=== PATIENT | male | born 1945 | race Caucasian/White ===

== ENCOUNTER 2022-07-26 08:26 | Day surgery (SDC) | payer OTHER ==
[2022-07-26] MEDS ORDERED: Ringers Lactate 1,000 ML IV ONE (09:05)
[2022-07-26] MEDS: CEFAZOLIN SODIUM 2 GM/VIAL ONE ×2 (09:55→10:45)
[2022-07-26] MEDS: BUPIVACAINE 0.25% PF 30 ML VIAL ONE ×2 (09:56→11:05)
[2022-07-26] MEDS ORDERED: FENTANYL CITR 100 MCG/2 ML ONE (10:01)
[2022-07-26] MEDS ORDERED: propofoL 200 MG/20 ML VIAL IV ONE (10:01)
[2022-07-26] MEDS ORDERED: LIDOCAINE 2% MPF 5 ML VIAL ONE (10:02)
[2022-07-26] MEDS ORDERED: ONDANSETRON 4 MG/2 ML VIAL ONE (10:06)
[2022-07-26] MEDS ORDERED: EPHEDRINE SULF 50 MG/ML VIAL ONE (10:56)
[2022-07-26] MEDS ORDERED: GLYCOPYRROLATE 0.2 MG/ML SYR ONE (10:59)
--- NOTE | 2022-07-26 12:04 | P.OP ---
Preoperative diagnosis: RIGHT inginal Hernia Postoperative diagnosis: RIGHT inginal Hernia Primary procedure: Open RIGHT inguinal hernia repair with mesh Anesthesia: GETA + Local Estimated blood loss: <5cc Specimen: Cord Lipoma Findings: Pantaloon - Direct / Indirect hernia Complications: None Implants: Bard Perfix Plug and Patch - medium Transferred to: Recovery Room Condition: Good
[2022-07-26] MEDS: HYDROMORPHONE HCL 1 MG/ML INJ ONE ×2 (12:30→12:35)
[2022-07-26] MEDS ORDERED: HYDROCODONE/APAP 5/325 MG TAB ONE (13:31)
[2022-07-26 15:41] VITALS: O2SAT 98
[2022-07-26 15:46] VITALS: BP 158/66; TEMP 96.9
--- NOTE | 2022-07-26 20:55 | OP ---
Date of Procedure: 07/26/2022 Surgeon: Zeus Gutierrez MD, Preoperative Diagnosis: Right inguinal hernia. Postoperative Diagnosis: Right inguinal hernia. Procedure Performed: Open right inguinal hernia repair with mesh. Anesthesia: General endotracheal plus local with 0.25% Marcaine. Estimated Fluid Loss: Less than 5 cc. Specimen: Cord lipoma. Findings: Pantaloon/direct indirect hernia. Complications: None. Implants: Bard PerFix Plug and Patch Hernia Repair System, medium. Disposition: The patient transferred to recovery room in good condition. Procedure In Detail: After informed consent was obtained, the patient was brought to the operating r oom and prepped and draped in the usual sterile fashion. After adequate anesthesia was achieved, I a nesthetized an area of skin overlying the right inguinal region down through subcutaneous tissues. I then dissected down through Camper's fat and Saw's fascia to expose the external oblique aponeuro sis. This was opened sharply with a 15 blade. I then opened it in its entirety using Metzenbaum sci ssors down to the deep inguinal ring. After this was performed, I encircled the spermatic cord struc tures, dissected the cord lipoma off the spermatic cord structures, protected throughout. I then dis covered the patient had both a direct and indirect inguinal hernia. At this point, I dissected down to imbricate the indirect inguinal hernia and push it back in the preperitoneal space. I sized a med ium Bard Plug at this point and placed it in the preperitoneal space. I then secured it circumferent ially around using 2-0 PDS sutures in interrupted fashion. I then fashioned the patch appropriately, placed it under the spermatic cord structures and secured it to the undersurface of the internal obl ique aponeurosis as well as the undersurface of the inguinal ligament. I used interrupted 2-0 PDS wright ture circumferentially around and secured it to the pubic tubercle on the medial aspect, after the me sh was placed appropriately. The repair was intact at this point. I then irrigated the area copious ly, dried it up, and then closed the external oblique aponeurosis using a running 3-0 Vicryl suture. I closed the Camper's fat and Saw's fascia en bloc using the same set 3-0 Vicryl suture. Deep de rmal plane was closed using same set 3-0 Vicryl suture in an interrupted fashion and the skin was michelle sed with a 4-0 Monocryl in a running fashion and Dermabond placed over top. The patient tolerated th e procedure without evidence of any complication and was transferred to PACU in good condition. All counts were correct at the end of the case. MARI/LESIA Voice ID: [id number] Report ID: [id number]
== END 2022-07-26 14:05 | disposition home or self-care (01) ==
LOC: OR 08:26
PROVIDERS: ATTEND Surgery
PROC: 0YU50JZ Supplement Right Inguinal Region with Synthetic Substitute, Open Approach (ICD-10-PCS; principal; 2022-07-26 10:45)
DX: K40.90 Unilateral inguinal hernia, without obstruction or gangrene, not specified as recurrent (principal); C44.90 Unspecified malignant neoplasm of skin, unspecified
CPT/HCPCS: 80048; 36415; 88302; 49505; J2704; J2001; J3010; J1170; J2405; J7120

== ENCOUNTER 2022-08-23 10:04 | Day surgery (SDC) | payer OTHER ==
[2022-08-21 13:47] LABS: Potassium 3.8 mEq/L (3.5-5.1)
--- NOTE | 2022-08-21 14:36 | EKG ---
Test Date: 2022-08-21 Test Time: 12:37:16 Er Physician: WANG MEASUREMENT RESULTS: Intervals: Rate: 45 MO: 222 QRSD: 150 QT: 472 QTc: 408 [place]: P: 66 MO: 222 QRS: 22 T: 45 INTERPRETIVE STATEMENTS: Marked sinus bradycardia with 1st degree AV block Right bundle branch block Abnormal ECG No previous ECG available for comparison Electronically Signed On 08-21-22 14:35:36 CDT by Evans Saul
[2022-08-23] MEDS ORDERED: CEFAZOLIN SODIUM 1 GM/VIAL ONE (10:16)
[2022-08-23] MEDS ORDERED: Ringers Lactate 1,000 ML IV ONE (10:16)
[2022-08-23] MEDS ORDERED: BUPIVACAINE 0.25% PF 10 ML VIAL ONE (12:23)
[2022-08-23] MEDS ORDERED: LIDOCAINE 2% MPF 5 ML VIAL ONE (12:40)
[2022-08-23] MEDS ORDERED: FENTANYL CITR 100 MCG/2 ML ONE (12:40)
[2022-08-23] MEDS ORDERED: propofoL 200 MG/20 ML VIAL IV ONE (12:40)
[2022-08-23] MEDS ORDERED: ONDANSETRON 4 MG/2 ML VIAL ONE (12:40)
--- NOTE | 2022-08-23 13:25 | P.OP ---
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
[2022-08-23] MEDS: MORPHINE 4 MG/ML SYR ONE ×2 (13:55→14:01)
[2022-08-23] MEDS ORDERED: KETOROLAC 30 MG/ML INJ ONE ×2 (13:59→14:05)
[2022-08-23 15:52] VITALS: O2SAT 100
[2022-08-23 15:55] VITALS: BP 138/56; TEMP 97.1
--- NOTE | 2022-08-23 18:51 | OP ---
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 Procedure Performed: Wide local excision of right dorsal forearm basal cell skin cancer. Anesthesia: General endotracheal plus local with 0.25% Marcaine. Estimated Blood Loss: Less than 5 cc. Specimen: Skin cancer. Findings: Approximately 4 cm ellipse of skin with known basal cell carcinoma present. Suture melchor placed, short was proximal, medial was long suture. Complications: None. The patient was transferred to recovery room in good condition. Procedure In Detail: After informed consent was obtained, the patient was brought to the operating room, prepped and draped in the usual sterile fashion. After adequate anesthesia achieved, I injected additional local in the subcutaneous plane circumferentially around a 1 cm basal cell carcinoma of the right dorsal forearm mid dorsal forearm of his RIGHT Dorsal Forearm. I sized the area appropriately using a ruler to make it minimum 1 cm margin circumferentially around the basal skin cancer and made an elliptical incision circumferentially around using a 15 blade down to subcutaneous tissues. I then placed marking sutures as described above with a 2-0 silk stitch. At this point, I used electrocautery to dissect it off the plane. There was minimal fat plane present between the dermal layer, which was quite thin as the patient was maintained on chronic anticoagulation. This was removed using electrocautery. Minimal hemostatic maneuvers were required to achieve hemostasis. The area was then inspected and irrigated. The specimen was sent off for pathologic examination. Irrigation was completed at this point. No additional hemostatic maneuvers were required. I then reapproximated partially the distal and proximal edges using a 3-0 nylon suture in interrupted fashion to reapproximate the edges incompletely as there was some tension on the area and the skin was thin friable making concern for tear easily as such the remainder was packed with sterile dressing. The patient tolerated the procedure without complication and transferred to PACU in good condition. All counts were correct at the end of the case. MARI/LESIA Voice ID: [id number] Report ID: [id number] [place]
== END 2022-08-23 15:25 | disposition home or self-care (01) ==
LOC: OR 10:04
PROVIDERS: ATTEND Surgery
PROC: 0JBG0ZZ Excision of Right Lower Arm Subcutaneous Tissue and Fascia, Open Approach (ICD-10-PCS; principal; 2022-08-23 12:15)
DX: C44.612 Basal cell carcinoma of skin of right upper limb, including shoulder (principal)
CPT/HCPCS: 11604; 93005; 80048; 36415; 88305; J2704; J2001; J3010; J2405; J7120; J0690